=== PATIENT | male | born 1990 | race Caucasian/White ===

== ENCOUNTER 2020-11-03 06:58 | Emergency (ER) | payer OTHER ==
[~2020-11-03] VITALS: Ht 182.9 cm; Wt 72.0 kg
[~2020-11-03 06:58] MED LIST: BACTRIM DS1 TAB PO; BENTYL10 MG PO; CIPROFLOXACN500 MG PO; DICYCLOMINE20 MG PO; KEFLEX500 M1 PO; KEFLEX500 MG PO; NAPROSYN500 MG PO; NO HOME MEDS; OMEPRAZOLE20 MG PO; PAROXETINE10 M1 PO; PEPCID20 MG PO; ULTRAM50 M1 PO; ULTRAM50 MG OR; ZOFRAN ODT4 MG PO
[2020-11-03 07:30] LABS: HEMATOCRIT 42.9 % (39.0-50.0); HEMOGLOBIN 14.3 g/dl (14.0-18.0); IMMATURE GRANULOCYTES 0.2 % (0.0-5.0); MEAN CELL VOLUME 92.1 fL CALC (80.0-100.0); MEAN CORPUSCULAR HGB 30.7 pG CALC (26.0-32.0); MEAN CORPUSCULAR HGB CONC 33.3 g/dL CAL (32.0-36.0); NEUT# 3.3 thou/uL (1.82-7.42); RED BLOOD COUNT 4.66 mill/uL (4.70-6.10); RED CELL DISTRI WIDTH 11.3 % (11.5-15.5)
[2020-11-03 07:47] LABS: ALBUMIN 4.6 g/dL (3.2-5.0); ALKALINE PHOSPHATASE 71 u/l (38-126); ANION GAP 13 (6-22 (CALC)); BUN 9 mg/dL (9-20); BUN/CREATININE RATIO 11 (12-20 (CALC)); CARBON DIOXIDE 27 mmol/l (22-30); CHLORIDE 102 mmol/l (95-108); CREATININE 0.8 mg/dL (0.7-1.3); GFR > 60 ML/MIN (>=60 (CALC)); GFR FOR AFR.AMER. > 60 ML/MIN (>=60 (CALC)); POTASSIUM 3.7 mmol/l (3.5-5.1); SGOT/AST 27 u/l (17-59); SODIUM 139 mmol/l (137-146); TOTAL PROTEIN 8.2 g/dL (6.3-8.2)
[2020-11-03 08:00] LABS: BILIRUBIN, TOTAL 0.7 mg/dL (0.0-1.4)
[2020-11-03] MEDS ORDERED: VISTARIL 50MG C50 MG PO (08:15)
[2020-11-03 08:44] VITALS: BP 115/70
== END 2020-11-03 08:44 | disposition home or self-care (01) | DRG 880 ==
LOC: ED 06:58
PROVIDERS: Family Medicine
DX: F41.9 Anxiety disorder, unspecified (principal); F17.200 Nicotine dependence, unspecified, uncomplicated

== ENCOUNTER 2021-12-07 20:06 | Observation (INO) | payer SELFPAY ==
[~2021-12-07] VITALS: Ht 182.9 cm; Wt 84.0 kg
[~2021-12-07 20:06] MED LIST changes: +VISTARIL 50MG C50 MG PO
[2021-12-07 20:17] VITALS: BP 136/82
[2021-12-07 20:30] VITALS: BP 140/87
[2021-12-07 20:56] LABS: HEMATOCRIT 42.4 % (39.0-50.0); IMMATURE GRANULOCYTES 0.1 % (0.0-5.0); MEAN CELL VOLUME 94.9 fL CALC (80.0-100.0); MEAN CORPUSCULAR HGB 31.3 pG CALC (26.0-32.0); NEUT# 8.78 thou/uL (1.82-7.42); RED BLOOD COUNT 4.47 mill/uL (4.70-6.10); RED CELL DISTRI WIDTH 11.1 % (11.5-15.5)
[2021-12-07 21:00] VITALS: BP 132/61
[2021-12-07 21:23] LABS: ALBUMIN 4.3 g/dL (3.2-5.0); ALKALINE PHOSPHATASE 57 u/l (38-126); AMYLASE 86 u/l (30-110); ANION GAP 14 (6-22 (CALC)); BUN 8 mg/dL (9-20); BUN/CREATININE RATIO 9 (12-20 (CALC)); C-REACTIVE PROTEIN 4.4 mg/dL (0-0.9); CARBON DIOXIDE 26 mmol/l (22-30); CHLORIDE 104 mmol/l (95-108); CREATININE 0.9 mg/dL (0.7-1.3); GFR FOR AFR.AMER. > 60 ML/MIN (>=60 (CALC)); GFR OTHER RACES > 60 ML/MIN (>=60 (CALC)); LIPASE 181 u/l (23-300); POTASSIUM 3.8 mmol/l (3.5-5.1); SGOT/AST 28 u/l (17-59); SODIUM 140 mmol/l (137-146); TOTAL PROTEIN 7.7 g/dL (6.3-8.2)
[2021-12-07 21:27] LABS: BILIRUBIN, TOTAL 0.2 mg/dL (0.0-1.4)
[2021-12-07 21:30] VITALS: BP 116/64
[2021-12-07 22:00] VITALS: BP 118/58
[2021-12-07 22:30] VITALS: BP 120/58
[2021-12-07 23:08] LABS: URINE BILIRUBIN - DIPSTICK NEGATIVE (NEGATIVE); URINE BLOOD DIPSTICK TRACE-INTACT (NEGATIVE); URINE COLOR YELLOW; URINE GLUCOSE - DIPSTICK NEGATIVE (NEGATIVE); URINE KETONE NEGATIVE (NEGATIVE); URINE LEUK ESTERASE NEGATIVE (NEGATIVE); URINE PROTEIN - DIPSTICK NEGATIVE (NEG-TRACE); URINE SPECIFIC GRAVITY <=1.005; URINE UROBILINOGEN - DIPSTICK 0.2 E.U./dL (0.2)
[2021-12-07 23:09] LABS: URINE NITRITE - DIPSTICK NEGATIVE (Negative)
[2021-12-08] VITALS (7 sets, daily range): BP systolic 102–123; BP diastolic 41–59
[2021-12-08 05:58] LABS: HEMATOCRIT 39.5 % (39.0-50.0); HEMOGLOBIN 13.3 g/dl (14.0-18.0); IMMATURE GRANULOCYTES 0.1 % (0.0-5.0); MEAN CELL VOLUME 95.2 fL CALC (80.0-100.0); MEAN CORPUSCULAR HGB CONC 33.7 g/dL CAL (32.0-36.0); NEUT# 8.05 thou/uL (1.82-7.42); RED BLOOD COUNT 4.15 mill/uL (4.70-6.10); RED CELL DISTRI WIDTH 11.2 % (11.5-15.5)
[2021-12-08 06:22] LABS: BUN 7 mg/dL (9-20); BUN/CREATININE RATIO 11 (12-20 (CALC)); CARBON DIOXIDE 22 mmol/l (22-30); CHLORIDE 110 mmol/l (95-108); CREATININE 0.7 mg/dL (0.7-1.3); GFR FOR AFR.AMER. > 60 ML/MIN (>=60 (CALC)); GFR OTHER RACES > 60 ML/MIN (>=60 (CALC)); SODIUM 140 mmol/l (137-146)
[2021-12-08 06:25] LABS: ANION GAP 13 (6-22 (CALC)); POTASSIUM 5.1 mmol/l (3.5-5.1)
[2021-12-08] MEDS ORDERED: BL IBUPROFEN200 MG PO (12:05)
[2021-12-09 04:17] VITALS: BP 103/50
[2021-12-09 05:56] LABS: HEMATOCRIT 38.3 % (39.0-50.0); HEMOGLOBIN 12.6 g/dl (14.0-18.0); IMMATURE GRANULOCYTES 0.1 % (0.0-5.0); MEAN CELL VOLUME 96.5 fL CALC (80.0-100.0); MEAN CORPUSCULAR HGB 31.7 pG CALC (26.0-32.0); MEAN CORPUSCULAR HGB CONC 32.9 g/dL CAL (32.0-36.0); NEUT# 7.96 thou/uL (1.82-7.42); RED BLOOD COUNT 3.97 mill/uL (4.70-6.10); RED CELL DISTRI WIDTH 11.4 % (11.5-15.5)
[2021-12-09 06:13] LABS: ALKALINE PHOSPHATASE 39 u/l (38-126); ANION GAP 10 (6-22 (CALC)); BILIRUBIN, TOTAL 0.2 mg/dL (0.0-1.4); BUN 12 mg/dL (9-20); BUN/CREATININE RATIO 18 (12-20 (CALC)); CARBON DIOXIDE 24 mmol/l (22-30); CHLORIDE 111 mmol/l (95-108); CREATININE 0.7 mg/dL (0.7-1.3); GFR FOR AFR.AMER. > 60 ML/MIN (>=60 (CALC)); GFR OTHER RACES > 60 ML/MIN (>=60 (CALC)); MAGNESIUM 2.2 mg/dL (1.6-2.3); POTASSIUM 4.6 mmol/l (3.5-5.1); SGOT/AST 18 u/l (17-59); SODIUM 140 mmol/l (137-146)
[2021-12-09 06:25] LABS: ALBUMIN 3.2 g/dL (3.2-5.0); TOTAL PROTEIN 5.9 g/dL (6.3-8.2)
[2021-12-09 08:00] VITALS: BP 103/50
[2021-12-09] MEDS ORDERED: PREDNISONE10 MG PO (10:59)
[2021-12-09 14:36] VITALS: BP 103/50
== END 2021-12-09 14:57 | disposition home or self-care (01) | DRG 951 ==
LOC: ED 20:06 → ED-I 23:38 → ED 23:52 → MS2 23:53
PROVIDERS: Family Medicine; Nurse Practitioner; ADMIT Internal Medicine; ATTEND Internal Medicine
DX: T50.906A Underdosing of unspecified drugs, medicaments and biological substances, initial encounter (principal); K50.111 Crohn's disease of large intestine with rectal bleeding; F41.9 Anxiety disorder, unspecified; Z91.120 Patient's intentional underdosing of medication regimen due to financial hardship; Z20.822 Contact with and (suspected) exposure to COVID-19
CPT/HCPCS: G0378; Q9967

== ENCOUNTER 2021-12-16 20:17 | Emergency (ER) | payer SELFPAY ==
[~2021-12-16] VITALS: Ht 182.9 cm; Wt 77.0 kg
[~2021-12-16 20:17] MED LIST changes: +BL IBUPROFEN200 MG PO; +PREDNISONE10 MG PO
[2021-12-16 20:38] VITALS: BP 130/79
[2021-12-16 21:15] LABS: HEMATOCRIT 33.8 % (39.0-50.0); IMMATURE GRANULOCYTES 0.9 % (0.0-5.0); MEAN CELL VOLUME 97.1 fL CALC (80.0-100.0); MEAN CORPUSCULAR HGB 31.6 pG CALC (26.0-32.0); MEAN CORPUSCULAR HGB CONC 32.5 g/dL CAL (32.0-36.0); NEUT# 10.67 thou/uL (1.82-7.42); RED BLOOD COUNT 3.48 mill/uL (4.70-6.10); RED CELL DISTRI WIDTH 12.1 % (11.5-15.5); URINE BILIRUBIN - DIPSTICK NEGATIVE (NEGATIVE); URINE BLOOD DIPSTICK NEGATIVE (NEGATIVE); URINE COLOR YELLOW; URINE GLUCOSE - DIPSTICK NEGATIVE (NEGATIVE); URINE KETONE TRACE mg/dL (NEGATIVE); URINE LEUK ESTERASE NEGATIVE (NEGATIVE); URINE PROTEIN - DIPSTICK TRACE mg/dL (NEG-TRACE); URINE SPECIFIC GRAVITY >=1.030
[2021-12-16 21:18] LABS: URINE NITRITE - DIPSTICK NEGATIVE (Negative)
[2021-12-16 21:25] LABS: ALBUMIN 3.7 g/dL (3.2-5.0); ALKALINE PHOSPHATASE 46 u/l (38-126); AMYLASE 77 u/l (30-110); ANION GAP 9 (6-22 (CALC)); BILIRUBIN, TOTAL 0.2 mg/dL (0.0-1.4); BUN 14 mg/dL (9-20); BUN/CREATININE RATIO 18 (12-20 (CALC)); CARBON DIOXIDE 28 mmol/l (22-30); CHLORIDE 104 mmol/l (95-108); CREATININE 0.8 mg/dL (0.7-1.3); GFR FOR AFR.AMER. > 60 ML/MIN (>=60 (CALC)); GFR OTHER RACES > 60 ML/MIN (>=60 (CALC)); LIPASE 73 u/l (23-300); SGOT/AST 23 u/l (17-59); SODIUM 138 mmol/l (137-146); TOTAL PROTEIN 6.4 g/dL (6.3-8.2)
[2021-12-16 21:34] LABS: POTASSIUM 3.3 mmol/l (3.5-5.1)
[2021-12-16 21:36] LABS: MYOGLOBIN 34 ng/mL (0 - 121)
[2021-12-16 22:31] VITALS: BP 136/90
[2021-12-16 23:00] VITALS: BP 126/75
[2021-12-16 23:30] VITALS: BP 131/74
[2021-12-17] VITALS: BP 131/75
[2021-12-17 00:30] VITALS: BP 121/66
== END 2021-12-17 00:45 | disposition short-term general hospital (02) | DRG 387 ==
LOC: ED 20:17
PROVIDERS: Emergency Medicine
DX: K50.911 Crohn's disease, unspecified, with rectal bleeding (principal)
CPT/HCPCS: Q9967; S0164

== ENCOUNTER 2022-02-15 23:04 | Emergency (ER) | payer SELFPAY ==
[~2022-02-15] VITALS: Ht 182.9 cm; Wt 77.0 kg
[2022-02-15 23:21] VITALS: BP 127/80
[2022-02-15 23:30] VITALS: BP 133/71
[2022-02-16 00:15] VITALS: BP 111/60
[2022-02-16 00:30] VITALS: BP 107/61
[2022-02-16] MEDS ORDERED: PREDNISONE50 MG PO (00:31)
[2022-02-16 00:35] VITALS: BP 107/61
== END 2022-02-16 00:45 | disposition home or self-care (01) | DRG 916 ==
LOC: ED 23:04
DX: T78.40XA Allergy, unspecified, initial encounter (principal); M79.89 Other specified soft tissue disorders; X58.XXXA Exposure to other specified factors, initial encounter

== ENCOUNTER 2022-03-26 06:43 | Emergency (ER) | payer BC ==
[~2022-03-26] VITALS: Ht 182.9 cm; Wt 76.0 kg
[~2022-03-26 06:43] MED LIST changes: +PREDNISONE50 MG PO
[2022-03-26 07:15] VITALS: BP 97/62
[2022-03-26 07:30] LABS: IMMATURE GRANULOCYTES 0.2 % (0.0-5.0); MEAN CORPUSCULAR HGB 28.7 pG CALC (26.0-32.0); MEAN CORPUSCULAR HGB CONC 32.4 g/dL CAL (32.0-36.0); NEUT# 10.78 thou/uL (1.82-7.42); RED BLOOD COUNT 4.87 mill/uL (4.70-6.10); RED CELL DISTRI WIDTH 12.3 % (11.5-15.5)
[2022-03-26 07:31] LABS: HEMATOCRIT 43.2 % (39.0-50.0); MEAN CELL VOLUME 88.7 fL CALC (80.0-100.0)
[2022-03-26 08:01] LABS: ALKALINE PHOSPHATASE 59 u/l (38-126); BUN 10 mg/dL (9-20); BUN/CREATININE RATIO 10 (12-20 (CALC)); CARBON DIOXIDE 25 mmol/l (22-30); CHLORIDE 104 mmol/l (95-108); GFR FOR AFR.AMER. > 60 ML/MIN (>=60 (CALC)); GFR OTHER RACES > 60 ML/MIN (>=60 (CALC)); LIPASE 108 u/l (23-300); SGOT/AST 34 u/l (17-59); SODIUM 144 mmol/l (137-146)
[2022-03-26 08:13] LABS: ALBUMIN 5.1 g/dL (3.2-5.0); ANION GAP 20 (6-22 (CALC)); BILIRUBIN, TOTAL 0.4 mg/dL (0.0-1.4); POTASSIUM 4.7 mmol/l (3.5-5.1); TOTAL PROTEIN 8.1 g/dL (6.3-8.2)
[2022-03-26 08:46] LABS: URINE BLOOD DIPSTICK NEGATIVE (NEGATIVE); URINE COLOR YELLOW; URINE GLUCOSE - DIPSTICK NEGATIVE (NEGATIVE); URINE KETONE 15 mg/dL (NEGATIVE); URINE LEUK ESTERASE NEGATIVE (NEGATIVE); URINE PH 5.5 (4.5-8.0); URINE PROTEIN - DIPSTICK NEGATIVE (NEG-TRACE); URINE SPECIFIC GRAVITY >=1.030; URINE UROBILINOGEN - DIPSTICK 0.2 E.U./dL (0.2)
[2022-03-26 08:50] LABS: URINE BILIRUBIN - DIPSTICK SMALL (NEGATIVE)
[2022-03-26 08:51] LABS: URINE NITRITE - DIPSTICK NEGATIVE (Negative)
[2022-03-26] MEDS ORDERED: ZOFRAN4 MG/TAB PO (09:54)
[2022-03-26 11:06] VITALS: BP 107/66
[2022-03-26 11:16] VITALS: BP 120/80
== END 2022-03-26 11:22 | disposition home or self-care (01) | DRG 392 ==
LOC: ED 06:43
PROVIDERS: Family Medicine
DX: R10.13 Epigastric pain (principal)
CPT/HCPCS: Q9967

== ENCOUNTER 2022-09-07 21:20 | Observation (INO) | payer BC ==
[~2022-09-07] VITALS: Ht 182.9 cm; Wt 88.6 kg
[2022-09-07] VITALS (9 sets, daily range): BP systolic 116–150; BP diastolic 66–79
[~2022-09-07 21:20] MED LIST changes: +PROTONIX20 MG PO; +ZOFRAN4 MG/TAB PO
--- NOTE | 2022-09-07 21:21 | NUR ---
PT ARRIVED VIA EMS FOR CC OF LEFT UPPER QUADRANT PAIN, AND LEFT SHOULDER PAIN THAT REPORTEDLY STARTED AN HOUR BEFORE ER VISIT. A/OX2 CONFUSED. PT IS UNCLEAR WHY HE IS HERE AND DOESNT HAVE A CLEAR UNDERSTANDING WHAT PROPETED ER VISIT. EMS REPORTED ILLICIT DRUGS WERE ON THE SCENE AND ROOM MATES REPORTED POSSIBLE WEED INGESTION. AWARE.
--- NOTE | 2022-09-07 21:54 | NUR ---
PT ROOM MATE ARRIVED. AND REPORTED PATIENT WAS NOT HIMSELF AND STARTED ACTING CONFUSED AND REPORTED PT STARTED HAVING NEW ONSET WEAKNESS AND NUMBNESS. MD IN ROOM. CODE STROKE CALLED. PT RUSHED TO CT.
[2022-09-07 22:08] LABS: URINE BILIRUBIN - DIPSTICK NEGATIVE (NEGATIVE); URINE BLOOD DIPSTICK NEGATIVE (NEGATIVE); URINE COLOR YELLOW; URINE GLUCOSE - DIPSTICK NEGATIVE (NEGATIVE); URINE KETONE TRACE mg/dL (NEGATIVE); URINE LEUK ESTERASE NEGATIVE (NEGATIVE); URINE NITRITE - DIPSTICK NEGATIVE (Negative); URINE PROTEIN - DIPSTICK NEGATIVE (NEG-TRACE); URINE SPECIFIC GRAVITY 1.015; URINE UROBILINOGEN - DIPSTICK 0.2 E.U./dL (0.2)
[2022-09-07 22:09] LABS: BASO% 0.6 % (0-3); HEMATOCRIT 39.2 % (39.0-50.0); HEMOGLOBIN 12.9 g/dl (14.0-18.0); LYMPH% 23.2 % (15-41); MEAN CELL VOLUME 90.5 fL CALC (80.0-100.0); MEAN CORPUSCULAR HGB 29.8 pG CALC (26.0-32.0); MEAN CORPUSCULAR HGB CONC 32.9 g/dL CAL (32.0-36.0); MONO% 6.8 % (2-13); NEUT# 4.65 thou/uL (1.82-7.42); NEUT% 68.4 % (42-76); RED BLOOD COUNT 4.33 mill/uL (4.70-6.10); RED CELL DISTRI WIDTH 11.8 % (11.5-15.5)
[2022-09-07 22:10] LABS: ALBUMIN 4.7 g/dL (3.2-5.0); ALKALINE PHOSPHATASE 58 u/l (38-126); ANION GAP 13 (6-22 (CALC)); BILIRUBIN, TOTAL 0.5 mg/dL (0.2-1.3); BUN 5 mg/dL (9-20); BUN/CREATININE RATIO 6 (12-20 (CALC)); CARBON DIOXIDE 27 mmol/l (22-30); CHLORIDE 104 mmol/l (95-108); CREATININE 0.8 mg/dL (0.7-1.3); GFR FOR AFR.AMER. > 60 ML/MIN (>=60 (CALC)); GFR OTHER RACES > 60 ML/MIN (>=60 (CALC)); SGOT/AST 34 u/l (17-59); SODIUM 141 mmol/l (137-146); TOTAL PROTEIN 7.8 g/dL (6.3-8.2)
--- NOTE | 2022-09-07 22:10 | NUR ---
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
[2022-09-07 22:12] LABS: INTERNATIONAL NORMALIZED RATIO 1.2 RATIO (0.7-1.3); PROTHROMBIN TIME 11.6 SECONDS (9.0-12.5)
[2022-09-07 22:13] LABS: POTASSIUM 3.4 mmol/l (3.5-5.1)
--- NOTE | 2022-09-07 23:20 | NUR ---
PARENTS AT BEDSIDE. REPORT IS BEING CALLED FOR PT ADMIT
--- NOTE | 2022-09-07 23:35 | NUR ---
REPORT RECEIVED FROM ER.
--- NOTE | 2022-09-07 23:48 | NUR ---
PATIENT ARRIVED FORM ER VIA STRETCHER. ALERT AND ORIENTED X3. ABLE TO AMBULATE WITHOUT ASSITANCE. REPISRATIONS EVENA ND UNLABORED. CLEAR THROUGHOUT. NORMAL HEART SOUNDS. NIH 0. MEND 0. NO DEFECITS, PATIENT ORIENTED TO ROOM AND CALL SYSTEM. CALL LIGHT AND BEDSIDE TABLE WITHIN REACH.
[2022-09-08] MEDS ORDERED: LOSARTAN POTASS50 MG PO (00:29)
[2022-09-08 03:25] VITALS: BP 115/59
--- NOTE | 2022-09-08 03:58 | NUR ---
PATIENT RESTING, NO APPARENT DISTRESS, RESPIRATIONS EVEN AND UNLABORED CHEST RISE AND FALL. CALL LIGHT AND BEDSIDE TABLE WITHIN REACH.
[2022-09-08 05:54] VITALS: BP 110/47
--- NOTE | 2022-09-08 08:00 | NUR ---
PT EATING BREAKFAST STATES NO PAIN. [facility] COMPLETED. ASSESSMENT COMPLETED. EDUCATED PT ON PLAN OF CARE. PT INDICATED UNDERSTANDING. FALL/SAFTEY PRECAUTION IN PLACE. CALL LIGHT WITHIN REACH.
--- NOTE | 2022-09-08 10:31 | NUR ---
[facility] SCALE OBTAINED WITH A 0, PT STATES FEELS MUCH BETTER. HE STATES HE HAS BEEN OVERLY TIRED AND HIM AND HIS PARTNER HAD BEEN ARGUING. PT STATES HE HAS A HX OF ANXIETY PROBLEMS
--- NOTE | 2022-09-08 10:50 | NUR ---
PT SIGNIFICANT OTHER STATES THAT PT HAD TWO SETS OF EARRINGS IN LAST NIGHT AND WHEN HE CAME UP TO ROOM, HAD NONE. CALLED DOWN TO ER AND THEY ARE NOT AWARE OF ANY EARRINGS LEFT DOWN IN ROOM. WILL ASK CHILD CARE COORDINATOR NURSES LATER IN SHIFT IF THEY REMEMBER ANYTHING ABOUT THEM
--- NOTE | 2022-09-08 11:05 | NUR ---
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
--- NOTE | 2022-09-08 12:00 | NUR ---
PT EATING LUNCH. STATES NO PAIN. BREATHIGN EVEN AND UNLABORED. STATES NO NEEDS AT THIS TIME. FALL/SAFTEY PRECAUTION IN PLACE. CALL LIGHT WITHIN REACH.
--- NOTE | 2022-09-08 14:47 | NUR ---
Discharge instructions given. Patient verbalizes understanding of same. Discharged in stable condition via Wheelchair to Home with staff. All belongings sent with pt.
== END 2022-09-08 14:47 | disposition home or self-care (01) | DRG 71 ==
LOC: ED 21:20 → ED-I 22:30 → ED 22:47 → MS2 22:48 → ED 23:24 → ED-I 23:29 → MS2 09-08 14:47
PROVIDERS: Emergency Medicine; ADMIT Internal Medicine; ATTEND Internal Medicine
DX: G93.40 Encephalopathy, unspecified (principal); K50.90 Crohn's disease, unspecified, without complications; F10.10 Alcohol abuse, uncomplicated; F41.9 Anxiety disorder, unspecified; Z87.11 Personal history of peptic ulcer disease
CPT/HCPCS: A9579; G0378

== ENCOUNTER 2022-10-31 11:43 | Emergency (ER) | payer BC ==
[2022-10-31] VITALS (20 sets, daily range): BP systolic 105–132; BP diastolic 53–77
[~2022-10-31] VITALS: Ht 182.9 cm; Wt 80.4 kg
[~2022-10-31 11:43] MED LIST changes: +LOSARTAN POTASS50 MG PO
[2022-10-31 12:18] LABS: EOS% 0.7 % (0-8); HEMATOCRIT 41.8 % (39.0-50.0); HEMOGLOBIN 13.5 g/dl (14.0-18.0); MEAN CELL VOLUME 91.5 fL CALC (80.0-100.0); MEAN CORPUSCULAR HGB 29.5 pG CALC (26.0-32.0); MEAN CORPUSCULAR HGB CONC 32.3 g/dL CAL (32.0-36.0); MONO% 10.7 % (2-13); NEUT# 1.88 thou/uL (1.82-7.42); NEUT% 63.1 % (42-76); RED BLOOD COUNT 4.57 mill/uL (4.70-6.10); RED CELL DISTRI WIDTH 11.9 % (11.5-15.5)
[2022-10-31 12:35] LABS: ALBUMIN 4.3 g/dL (3.2-5.0); ALKALINE PHOSPHATASE 54 u/l (38-126); ANION GAP 12 (6-22 (CALC)); BILIRUBIN, TOTAL 0.1 mg/dL (0.2-1.3); BUN 4 mg/dL (9-20); BUN/CREATININE RATIO 5 (12-20 (CALC)); CARBON DIOXIDE 27 mmol/l (22-30); CHLORIDE 105 mmol/l (95-108); CREATININE 0.8 mg/dL (0.7-1.3); GFR FOR AFR.AMER. > 60 ML/MIN (>=60 (CALC)); GFR OTHER RACES > 60 ML/MIN (>=60 (CALC)); POTASSIUM 4.2 mmol/l (3.5-5.1); SGOT/AST 30 u/l (17-59); SODIUM 140 mmol/l (137-146)
[2022-10-31 13:12] LABS: LYMPH% 24.5 % (15-41)
[2022-10-31] MEDS ORDERED: AMOX/K CLAV875 M1 PO (15:49)
== END 2022-10-31 16:32 | disposition home or self-care (01) | DRG 153 ==
LOC: ED 11:43
PROVIDERS: Family Medicine
DX: J02.9 Acute pharyngitis, unspecified (principal); R10.84 Generalized abdominal pain; K50.90 Crohn's disease, unspecified, without complications; F41.9 Anxiety disorder, unspecified; F17.200 Nicotine dependence, unspecified, uncomplicated; Z20.822 Contact with and (suspected) exposure to COVID-19

== ENCOUNTER 2022-11-23 13:03 | Emergency (ER) | payer BC ==
[~2022-11-23] VITALS: Ht 182.9 cm; Wt 81.0 kg
[~2022-11-23 13:03] MED LIST changes: +AMOX/K CLAV875 M1 PO
[2022-11-23 15:20] LABS: BASO% 0.3 % (0-3); EOS% 0.3 % (0-8); HEMATOCRIT 39.8 % (39.0-50.0); HEMOGLOBIN 12.5 g/dl (14.0-18.0); IMMATURE GRANULOCYTES 0.2 % (0.0-5.0); MEAN CELL VOLUME 92.6 fL CALC (80.0-100.0); MEAN CORPUSCULAR HGB 29.1 pG CALC (26.0-32.0); MEAN CORPUSCULAR HGB CONC 31.4 g/dL CAL (32.0-36.0); MONO% 6.3 % (2-13); NEUT# 1.78 thou/uL (1.82-7.42); NEUT% 29.7 % (42-76); RED BLOOD COUNT 4.3 mill/uL (4.70-6.10); RED CELL DISTRI WIDTH 13.4 % (11.5-15.5)
[2022-11-23 15:36] LABS: LYMPH% 63.2 % (15-41)
[2022-11-23 15:38] LABS: ALBUMIN 4.4 g/dL (3.2-5.0); ANION GAP 12 (6-22 (CALC)); BUN 5 mg/dL (9-20); BUN/CREATININE RATIO 6 (12-20 (CALC)); CARBON DIOXIDE 25 mmol/l (22-30); CHLORIDE 108 mmol/l (95-108); CREATININE 0.8 mg/dL (0.7-1.3); GFR FOR AFR.AMER. > 60 ML/MIN (>=60 (CALC)); GFR OTHER RACES > 60 ML/MIN (>=60 (CALC)); LIPASE 232 u/l (23-300); SODIUM 141 mmol/l (137-146); TOTAL PROTEIN 8.1 g/dL (6.3-8.2)
[2022-11-23 15:46] LABS: ALKALINE PHOSPHATASE 86 u/l (38-126); BILIRUBIN, TOTAL 0.4 mg/dL (0.2-1.3); SGOT/AST 54 u/l (17-59)
[2022-11-23 17:29] LABS: URINE BILIRUBIN - DIPSTICK NEGATIVE (NEGATIVE); URINE BLOOD DIPSTICK NEGATIVE (NEGATIVE); URINE COLOR YELLOW; URINE GLUCOSE - DIPSTICK NEGATIVE (NEGATIVE); URINE KETONE NEGATIVE (NEGATIVE); URINE LEUK ESTERASE NEGATIVE (NEGATIVE); URINE PROTEIN - DIPSTICK NEGATIVE (NEG-TRACE); URINE SPECIFIC GRAVITY <=1.005; URINE UROBILINOGEN - DIPSTICK 0.2 E.U./dL (0.2)
[2022-11-23 17:30] LABS: URINE NITRITE - DIPSTICK NEGATIVE (Negative)
[2022-11-23] MEDS ORDERED: PREDNISONE10 MG PO ×2 (18:41→18:44)
[2022-11-23] MEDS ORDERED: ONDANSETRON4 MG PO (18:44)
[2022-11-23 18:47] VITALS: BP 120/70
== END 2022-11-23 18:58 | disposition home or self-care (01) | DRG 392 ==
LOC: ED 13:03
PROVIDERS: Nurse Practitioner
DX: R10.9 Unspecified abdominal pain (principal); R19.7 Diarrhea, unspecified; K50.90 Crohn's disease, unspecified, without complications; F41.9 Anxiety disorder, unspecified; F17.200 Nicotine dependence, unspecified, uncomplicated

== ENCOUNTER 2023-02-08 14:16 | Emergency (ER) | payer BC ==
[2023-02-08] VITALS (7 sets, daily range): BP systolic 97–116; BP diastolic 44–61
[~2023-02-08] VITALS: Ht 182.9 cm; Wt 79.0 kg
[~2023-02-08 14:16] MED LIST changes: +ONDANSETRON4 MG PO
== END 2023-02-08 16:59 | disposition home or self-care (01) | DRG 866 ==
LOC: ED 14:16
DX: B34.9 Viral infection, unspecified (principal); F41.9 Anxiety disorder, unspecified; F17.200 Nicotine dependence, unspecified, uncomplicated; Z20.822 Contact with and (suspected) exposure to COVID-19

== ENCOUNTER 2023-02-12 13:25 | Emergency (ER) | payer BC ==
[~2023-02-12] VITALS: Ht 182.9 cm; Wt 79.3 kg
[2023-02-12] VITALS (22 sets, daily range): BP systolic 106–137; BP diastolic 56–84
[2023-02-12 14:45] LABS: BASO% 0.2 % (0-3); HEMATOCRIT 37.9 % (39.0-50.0); HEMOGLOBIN 12.4 g/dl (14.0-18.0); IMMATURE GRANULOCYTES 0.2 % (0.0-5.0); LYMPH% 35.1 % (15-41); MEAN CELL VOLUME 93.1 fL CALC (80.0-100.0); MEAN CORPUSCULAR HGB 30.5 pG CALC (26.0-32.0); MEAN CORPUSCULAR HGB CONC 32.7 g/dL CAL (32.0-36.0); MONO% 8.9 % (2-13); NEUT# 2.82 thou/uL (1.82-7.42); NEUT% 55.6 % (42-76); RED BLOOD COUNT 4.07 mill/uL (4.70-6.10); RED CELL DISTRI WIDTH 12.6 % (11.5-15.5)
[2023-02-12 14:57] LABS: ALBUMIN 3.7 g/dL (3.2-5.0); ANION GAP 11 (6-22 (CALC)); BILIRUBIN, TOTAL 0.3 mg/dL (0.2-1.3); BUN 5 mg/dL (9-20); BUN/CREATININE RATIO 5 (12-20 (CALC)); C-REACTIVE PROTEIN 2.7 mg/dL (0-0.9); CARBON DIOXIDE 27 mmol/l (22-30); CHLORIDE 105 mmol/l (95-108); GFR FOR AFR.AMER. > 60 ML/MIN (>=60 (CALC)); GFR OTHER RACES > 60 ML/MIN (>=60 (CALC)); LIPASE 153 u/l (23-300); POTASSIUM 3.6 mmol/l (3.5-5.1); SGOT/AST 44 u/l (17-59); SODIUM 139 mmol/l (137-146); TOTAL PROTEIN 6.7 g/dL (6.3-8.2)
[2023-02-12 15:06] LABS: ALKALINE PHOSPHATASE 35 u/l (38-126)
[2023-02-12 16:10] LABS: URINE BILIRUBIN - DIPSTICK Negative (NEGATIVE); URINE BLOOD DIPSTICK Negative (NEGATIVE); URINE GLUCOSE - DIPSTICK Negative (NEGATIVE); URINE KETONE Negative (NEGATIVE); URINE LEUK ESTERASE Negative (NEGATIVE); URINE NITRITE - DIPSTICK Negative (Negative); URINE PROTEIN - DIPSTICK Negative (NEG-TRACE); URINE SPECIFIC GRAVITY <=1.005; URINE UROBILINOGEN - DIPSTICK 0.2 E.U./dL (0.2)
[2023-02-12 16:16] LABS: URINE COLOR Yellow
[2023-02-12] MEDS ORDERED: ZOFRAN4 MG/TAB PO (18:28)
[2023-02-12] MEDS ORDERED: AMOX/K CLAV875 M1 PO (18:28)
== END 2023-02-12 19:04 | disposition home or self-care (01) | DRG 387 ==
LOC: ED 13:25
PROVIDERS: Nurse Practitioner
DX: K50.90 Crohn's disease, unspecified, without complications (principal); F41.9 Anxiety disorder, unspecified; Z20.822 Contact with and (suspected) exposure to COVID-19
CPT/HCPCS: Q9967

== ENCOUNTER 2023-02-23 09:17 | Emergency (ER) | payer BC ==
[2023-02-23] VITALS (10 sets, daily range): BP systolic 105–121; BP diastolic 57–71
[~2023-02-23] VITALS: Ht 182.9 cm; Wt 75.7 kg
[2023-02-23] MEDS ORDERED: PREDNISONE20 MG PO (09:46)
[2023-02-23] MEDS ORDERED: REMICADE INJ100 MG IV (09:47)
[2023-02-23 10:23] LABS: ALKALINE PHOSPHATASE 49 u/l (38-126); ANION GAP 12 (6-22 (CALC)); BILIRUBIN, TOTAL 0.4 mg/dL (0.2-1.3); BUN 10 mg/dL (9-20); BUN/CREATININE RATIO 12 (12-20 (CALC)); CARBON DIOXIDE 29 mmol/l (22-30); CHLORIDE 104 mmol/l (95-108); CREATININE 0.8 mg/dL (0.7-1.3); GFR FOR AFR.AMER. > 60 ML/MIN (>=60 (CALC)); GFR OTHER RACES > 60 ML/MIN (>=60 (CALC)); LIPASE 124 u/l (23-300); POTASSIUM 3.5 mmol/l (3.5-5.1); SGOT/AST 29 u/l (17-59); SODIUM 141 mmol/l (137-146); TOTAL PROTEIN 7.3 g/dL (6.3-8.2)
[2023-02-23 10:28] LABS: BASO% 0.5 % (0-3); EOS% 0.7 % (0-8); HEMATOCRIT 41.4 % (39.0-50.0); HEMOGLOBIN 13.2 g/dl (14.0-18.0); IMMATURE GRANULOCYTES 0.2 % (0.0-5.0); LYMPH% 33.7 % (15-41); MEAN CELL VOLUME 93.5 fL CALC (80.0-100.0); MEAN CORPUSCULAR HGB 29.8 pG CALC (26.0-32.0); MEAN CORPUSCULAR HGB CONC 31.9 g/dL CAL (32.0-36.0); MONO% 7.4 % (2-13); NEUT# 4.6 thou/uL (1.82-7.42); NEUT% 57.5 % (42-76); RED BLOOD COUNT 4.43 mill/uL (4.70-6.10); RED CELL DISTRI WIDTH 12.3 % (11.5-15.5)
[2023-02-23 10:35] LABS: URINE BILIRUBIN - DIPSTICK Negative (NEGATIVE); URINE BLOOD DIPSTICK Negative (NEGATIVE); URINE GLUCOSE - DIPSTICK Negative (NEGATIVE); URINE KETONE Negative (NEGATIVE); URINE LEUK ESTERASE Negative (NEGATIVE); URINE NITRITE - DIPSTICK Negative (Negative); URINE PROTEIN - DIPSTICK Negative (NEG-TRACE); URINE SPECIFIC GRAVITY 1.015
[2023-02-23 10:36] LABS: URINE COLOR Yellow
== END 2023-02-23 12:42 | disposition home or self-care (01) | DRG 392 ==
LOC: ED 09:17
PROVIDERS: Emergency Medicine
DX: K59.00 Constipation, unspecified (principal); K50.90 Crohn's disease, unspecified, without complications
CPT/HCPCS: Q9967

== ENCOUNTER 2024-05-24 00:47 | Emergency (ER) | payer BC ==
[2024-05-24] VITALS (10 sets, daily range): BP systolic 88–112; BP diastolic 50–63
[~2024-05-24] VITALS: Ht 182.9 cm; Wt 81.8 kg
[~2024-05-24 00:47] MED LIST changes: +PREDNISONE20 MG PO; +PROTONIX40 M2 PO; +REMICADE INJ100 MG IV; +STERAPRED DS10 MG PO; +TRAMADOL HCL50 MG PO
[2024-05-24] MEDS ORDERED: traMADol HCL 50 MG/TAB PO ONE (01:10)
[2024-05-24] MEDS ORDERED: TRAMADOL HYDROC50 M1 PO (02:48)
== END 2024-05-24 02:56 | disposition home or self-care (01) | DRG 605 ==
LOC: ED 00:47
DX: S60.221A Contusion of right hand, initial encounter (principal); S63.501A Unspecified sprain of right wrist, initial encounter; W22.09XA Striking against other stationary object, initial encounter

== ENCOUNTER 2024-08-12 17:48 | Emergency (ER) | payer BC ==
[~2024-08-12] VITALS: Ht 182.9 cm; Wt 90.7 kg
[2024-08-12] VITALS (8 sets, daily range): BP systolic 110–121; BP diastolic 64–78
[~2024-08-12 17:48] MED LIST changes: +TRAMADOL HYDROC50 M1 PO
[2024-08-12] MEDS ORDERED: TAM75CAP PO (18:46)
[2024-08-12] MEDS ORDERED: OSELTAMIVIR PHOSPHATE 75 MG/TAB CAP PO ONE (19:10)
== END 2024-08-12 19:23 | disposition home or self-care (01) | DRG 194 ==
LOC: ED 17:48
DX: J10.1 Influenza due to other identified influenza virus with other respiratory manifestations (principal); K50.90 Crohn's disease, unspecified, without complications; Z20.822 Contact with and (suspected) exposure to COVID-19